=== PATIENT | male | born 1995 | race Caucasian/White ===

== ENCOUNTER → 2017-07-02 | Outpatient (CLI) | payer OTHER ==
[2017-07-03 01:20] LABS: Estradiol 27.6 pg/mL; Prolactin 5.6 ng/mL (2.1-17.7); Sex Horm Bind Glob 45.7 nmol/L (14.55-94.64)
== END | disposition home or self-care (01) ==
LOC: LABWHC1 15:33
PROVIDERS: ATTEND Obstetrics & Gynecology Reproductive Endocrinology
DX: Z01.812 Encounter for preprocedural laboratory examination (principal)
CPT/HCPCS: 36415; 82040; 82670; 83001; 83002; 84146; 84270; 84403; 84443